=== PATIENT | female | born 1935 | race Caucasian/White ===

== ENCOUNTER → 2017-02-07 | Day surgery (SDC) | payer MEDICARE ==
[~2017-02-07] MED LIST: ASPI-94 PO; ATOR20TA PO; BONI150T PO; BUPIVACAINE/EPINEPHRINE 0.25% PF 10 ML VIAL ONE; CETI10 PO; CIPR500T4 PO; COQ-200C PO; FISH100020 PO; LOSA50TA PO; MECL-62 PO; MUCI600T PO; PEG-SOL4 PO; PRIS50TA PO; RANI150 PO; TYLE500T PO; VENTAER INH
== END | disposition home or self-care (01) ==
LOC: ESDC 13:03
PROVIDERS: ATTEND Orthopaedic Surgery
DX: S83.232A Complex tear of medial meniscus, current injury, left knee, initial encounter (principal); Z01.810 Encounter for preprocedural cardiovascular examination; Z53.9 Procedure and treatment not carried out, unspecified reason
CPT/HCPCS: 93005; G0463; 99211

== ENCOUNTER → 2017-03-07 | Day surgery (SDC) | payer MEDICARE ==
[~2017-03-07] MED LIST changes: +ACETAMINOPHEN/HYDROcodone 325 MG/7.5 MG TAB ONE; +BUPIVACAINE/EPINEPHRINE 0.25% 50 ML VIAL ONE; -BUPIVACAINE/EPINEPHRINE 0.25% PF 10 ML VIAL ONE; +LACTATED RINGER'S 1000 ML INJ 1,000 ML ONE; +MIDAZOLAM HCL 2 MG/2 ML VIAL ONE; +ONDANSETRON HCL 4 MG/2 ML VIAL IV PUSH ONE; +PROPOFOL 100 MG/10 ML INJ IV ONE; +ceFAZolin INJ 1,000 MG VIAL ONE
[2017-03-07 11:57] LABS: PROTHROMBIN TIME - PATIENT 11.2 SEC (9.8-11.6)
--- NOTE | 2017-03-07 14:59 | TN ---
cc: FARZAD FOSTER MD DATE OF SURGERY: [birth year]07/1977 PHYSICIAN/SURGEON: Farzad Foster MD PREOPERATIVE DIAGNOSIS Left knee torn medial meniscus, torn lateral meniscus, loose body chondromalacia / osteoarthritis. POSTOPERATIVE DIAGNOSIS 1. Left knee torn posterior medial meniscus 2. left Knee: Torn anterior lateral meniscus 3. Two loose bodies 4. Osteoarthritis 5. Chondromalacia medial femoral condyle, medial tibial plateau and chondromalacia patella. PROCEDURE Left knee arthroscopy with partial medial meniscectomy and partial lateral meniscectomy, removal of two loose bodies. PROCEDURE IN DETAIL Informed consent was obtained. The patient taken to the operating room and placed in the supine position on the operating room table, she was administered general anesthesia by Dr. Maldonado of the Anesthesia Department that time a tourniquet applied to the left thigh, left leg was prepped with Betadine soap followed by Betadine paint. Draping commenced with sterile down sheet, towel about the tourniquet, split sheet stockinette was applied to the foot calf. This was wrapped with Coban extremity drape was applied. The leg was elevated. A time-out was held and confirmed. The patient had been given gram of Ancef prior to initiation of procedure that time the tear was elevated maximum height. The tourniquet inflated to 300 mmHg. The leg was allowed to flex over the side of the operating table. An 80 gauge spinal needle was placed in the region of the lateral infrapatellar portal. This region infiltrated 4 cc of 0.25% Marcaine with epinephrine. Likewise infiltration was performed into the medial infrapatellar portal and trans patellar tendon portal regions small incision was made with 11-blade region of the trans patellar tendon portal inflow cannula was placed second incision was made. The region of the lateral patellar portal. The arthroscopic cannula was placed. Diagnostic arthroscopy commenced immediate compartment examined Anterior and the medial portion meniscus appeared intact. However, towards posterior medial corner there was some fraying of the meniscus noted posterior portion was opened up. There was a large undersurface tear of the meniscus with degenerative changes extended almost to the posterior horn region utilizing upbiting basket forceps and Striker meniscal shaver. The meniscus was debrided. There were some extensive chondromalacia changes noted. The medial femoral condyle and the medial tibial plateau protect involving the more medial portions send gentle debridement was performed. At that time the scope was maneuvered over the intercondylar notch edge of the lateral compartment and the leg was placed in a figure four position. A large anterolateral loose body was identified. This was grasped with a grasper and removed. The lateral meniscus was probed posterior portion of the lateral meniscus appeared intact popliteus tendon and popliteus hiatus appeared intact. However anteriorly. There was fraying in the anterolateral portions which extended up to the anterior horn region. The chondromalacia changes involving the lateral femoral condyle and tibial plateau were much less severe than his changes on the medial side. Utilizing upbiting basket forceps and this Metooo meniscal shaver. The anterior torn portion of the lateral meniscus was removed. A second loose body was identified during this process and this was likewise removed. Once this was complete the scope was placed in suprapatellar pouch. This appeared normal. There was some mild chondromalacia changes noted on the undersurface of the patella and the trochlear groove. There were no pathologic plica seen. At that time the knee was thoroughly irrigated and suctioned all cannulas were removed. Each portal was closed with single 4-0 nylon stitch, a second stitch was placed in each portal due to the patient's use of Eliquis to attempt to prevent bleeding. The tourniquet was then deflated. Total tourniquet time was 42 minutes. Patient tolerated the procedure well, at the completion of the procedure the sponge count, instrument counts and needle counts were correct, estimated blood loss was less then 10 cc. MD HELEN Jenkins/madeline /2:32 PM /2:42 PM MONTY
== END | disposition home or self-care (01) ==
LOC: ESDC 10:49
PROVIDERS: ATTEND Orthopaedic Surgery
DX: S83.242A Other tear of medial meniscus, current injury, left knee, initial encounter (principal); S83.282A Other tear of lateral meniscus, current injury, left knee, initial encounter; M17.12 Unilateral primary osteoarthritis, left knee; M22.42 Chondromalacia patellae, left knee; Z79.82 Long term (current) use of aspirin
CPT/HCPCS: 01400; 29880; 36415; 85610; J0690; J2250; J2405; J3010; J7120

== ENCOUNTER → 2017-11-29 | Outpatient (CLI) | payer MEDICARE ==
[~2017-11-29] MED LIST changes: -ACETAMINOPHEN/HYDROcodone 325 MG/7.5 MG TAB ONE; +ATOR20TA15 PO; -BUPIVACAINE/EPINEPHRINE 0.25% 50 ML VIAL ONE; +CHOL1TAB42 PO; +COQ-50CA2 PO; -LACTATED RINGER'S 1000 ML INJ 1,000 ML ONE; +METO1TAB9 PO; -MIDAZOLAM HCL 2 MG/2 ML VIAL ONE; -ONDANSETRON HCL 4 MG/2 ML VIAL IV PUSH ONE; -PROPOFOL 100 MG/10 ML INJ IV ONE; +VALS1TAB65 PO; +XARE20TA PO; -ceFAZolin INJ 1,000 MG VIAL ONE
[2017-11-29 10:16] LABS: HEMATOCRIT 41.7 % (35.0-46.0); HEMOGLOBIN 13.9 GM/DL (11.6-15.3); MEAN CELL VOLUME 87.3 FL (80.0-100.0); MEAN CORPUSCULAR HGB CONC 33.3 % (32.0-36.0); PLATELET COUNT 183 TH/MM3 (150-450); RED BLOOD COUNT 4.78 MIL/MM3 (4.00-5.30); RED CELL DISTRIBUTION WIDTH 13.6 % (11.6-17.2); WHITE BLOOD COUNT 8.5 TH/MM3 (4.0-11.0)
[2017-11-29 10:21] LABS: INTERNATIONAL NORMALIZED RATIO 1.3 RATIO; PROTHROMBIN TIME - PATIENT 13.5 SEC (9.8-11.6)
[2017-11-29 10:22] LABS: BILIRUBIN, URINE NEG (NEG); BLOOD, URINE MOD (NEG); GLUCOSE,URINE NEG (NEG); KETONE, URINE NEG (NEG); MUCUS URINE FEW /lpf (OCC); NITRITE,URINE NEG (NEG); PH, URINE 5.5 (5.0-8.5); SQUAMOUS EPITHELIAL CELL URINE 1 /hpf (0-5); URINE COLOR YELLOW (YELLW/STRAW); URINE LEUKOCYTE ESTERASE NEG (NEG)
[2017-11-29 10:48] LABS: BICARBONATE 30.5 MEQ/L (21.0-32.0); CALCIUM 9.3 MG/DL (8.5-10.1); CREATININE 0.83 MG/DL (0.50-1.00)
== END ==
LOC: CPRE 08:32
PROVIDERS: ATTEND Orthopaedic Surgery
DX: Z01.812 Encounter for preprocedural laboratory examination (principal); M79.609 Pain in unspecified limb; M22.42 Chondromalacia patellae, left knee; M17.12 Unilateral primary osteoarthritis, left knee; M21.062 Valgus deformity, not elsewhere classified, left knee; I10 Essential (primary) hypertension
CPT/HCPCS: 36415; 80048; 81001; 85027; 85610; 85730

== ENCOUNTER 2017-12-16 07:30 | Inpatient (IN) | payer MEDICARE ==
[~2017-12-16] VITALS: Ht 157.5 cm; Wt 86.2 kg
[2017-12-16] MEDS: LACTATED RINGER'S 1000 ML INJ 1,000 ML IV SCH ×2 (03:30→14:00)
[~2017-12-16 07:30] MED LIST changes: -ASPI-94 PO; -ATOR20TA PO; -BONI150T PO; -CIPR500T4 PO; -COQ-200C PO; -FISH100020 PO; -LOSA50TA PO; -MECL-62 PO; -MUCI600T PO; -PEG-SOL4 PO; -RANI150 PO; -TYLE500T PO; -VENTAER INH
[2017-12-16] MEDS ORDERED: CHLORHEXIDINE GLUCONATE 4% SOLN 120 ML BTL TOPICAL SCH (08:15)
[2017-12-16] MEDS ORDERED: POVIDONE IODINE 5% (ANTISEPSIS KIT) 4 APPLICATIONS EACH NARE PRN (08:15)
[2017-12-16] MEDS ORDERED: EXPAREL PERI-ARTICULAR INJECTION (TOTAL VOL. 100 ML) P-ARTICULR SCH ×2 (08:15)
[2017-12-16] MEDS ORDERED: TRANEXAMIC ACID INJ 860 MG in SODIUM CHLORIDE 0.9% INJ 100 ML IV SCH (08:15)
[2017-12-16] MEDS ORDERED: INSULIN HUMAN REGULAR 1,000 UNITS/10 ML VIAL SQ PRN (08:15)
[2017-12-16] MEDS ORDERED: METOPROLOL TARTRATE 25 MG TAB PO PRN (08:15)
[2017-12-16] MEDS ORDERED: SODIUM CHLORID 0.9% 500 ML IV PRN (08:15)
[2017-12-16] MEDS ORDERED: CHLORHEXIDINE GLUCONATE 2 % 1 PACK (2 CLOTHS) TOPICAL PRN (08:15)
[2017-12-16] MEDS ORDERED: ceFAZolin 2 GM PREMIX 50 ML IV SCH (08:15)
[2017-12-16] MEDS ORDERED: LACTATED RINGER'S 1000 ML IV PRN (08:15)
[2017-12-16] MEDS ORDERED: GENTAMICIN SULFATE 80 MG/2 ML VIAL ONE (08:28)
[2017-12-16] MEDS ORDERED: ZANT150T2 PO ×2 (08:33)
--- NOTE | 2017-12-16 09:29 | HHI.FF ---
Face to Face Verification Diagnosis: (1) Status post total left knee replacement Physical Therapy Gait training Knee: Total knee, Protocol: Left, Gait training, Full weight bearing Left LE Weight Bearing: WB as tolerated Left LE Range of Motion: Active ROM (active, active-assisted and passive range of motion. Range of motion goal is 0 extension to 125 of flexion.) Nursing Nursing: Dressing changes (to start on postoperative day 7) Dressing Changes: Daily dressing change, Coverderm/Primapore (to start on postop day 7) Additional Instructions Remove Steri-Strips on postoperative day 14. I have seen patient Maria Teresa Torres on 12/16/17. My clinical findings support the need for the requested home health care services because: Ltd mobility - disease progression Limited ability to care for self High risk of falls I certify that my clinical findings support that this patient is homebound because: Post-op weakness Unsteady gait/balance Unsafe to leave home unassisted Jonathan Lin MD (Charles) Dec 16, 2017 09:29
[2017-12-16] MEDS ORDERED: MORPHINE SULFATE 4 MG/ML INJ IV PUSH PRN (09:30)
[2017-12-16] MEDS ORDERED: TRANEXAMIC ACID INJ 0 MG in SODIUM CHLORIDE 0.9% INJ 100 ML IV SCH (09:30)
[2017-12-16] MEDS ORDERED: ACETAMINOPHEN/HYDROcodone 325 MG/7.5 MG TAB PO PRN (09:30)
[2017-12-16] MEDS ORDERED: ONDANSETRON HCL 4 MG/2 ML VIAL IVP PRN (09:30)
[2017-12-16] MEDS ORDERED: MAGNESIUM HYDROXIDE SUSP 30 ML CUP PO PRN (09:30)
[2017-12-16] MEDS ORDERED: Post-op Orders (for Pharmacy) XX ONE (09:30)
[2017-12-16 09:36] LABS: INTERNATIONAL NORMALIZED RATIO 1.1 RATIO
[2017-12-16] MEDS ORDERED: HYDR-3580 PO (09:37)
[2017-12-16] MEDS ORDERED: ROPIVACAINE 0.5% PF INJ 30 ML VIAL ONE (09:42)
[2017-12-16] MEDS ORDERED: FAMOTIDINE 20 MG/2 ML VIAL ONE (09:59)
[2017-12-16] MEDS ORDERED: MIDAZOLAM HCL 2 MG/2 ML VIAL ONE (09:59)
[2017-12-16] MEDS ORDERED: PROPOFOL 500 MG/50 ML INJ 50 ML ONE (09:59)
[2017-12-16] MEDS ORDERED: ACETAMINOPHEN 1000 MG/100 ML 100 ML IV ONE (10:03)
[2017-12-16] MEDS: TRANEXAMIC ACID INJ 860 MG in SODIUM CHLORIDE 0.9% INJ 100 ML IV SCH ×2 (11:15→11:16)
[2017-12-16] MEDS ORDERED: DEXAMETHASONE SOD PHOS 4 MG/ML VIAL IV ONE (12:00)
[2017-12-16] MEDS ORDERED: ONDANSETRON HCL 4 MG/2 ML VIAL IV PUSH ONE (12:00)
[2017-12-16] MEDS ORDERED: PROPOFOL 200 MG/20 ML AMP IV ONE (12:00)
[2017-12-16] MEDS ORDERED: LACTATED RINGER'S 1000 ML INJ 1,000 ML IV ONE (12:00)
[2017-12-16] MEDS ORDERED: PHENYLEPH/NS 1000 MCG/10 ML SYR IV ONE (12:00)
[2017-12-16] MEDS ORDERED: PHENYLEPHRINE HCL 10 MG/ML VIAL IV ONE (12:00)
[2017-12-16] MEDS ORDERED: ePHEDrine/NS 25 MG/5 ML SYRINGE IV ONE (12:00)
--- NOTE | 2017-12-16 12:42 | HHI.PR ---
Immediate Post Op Note Procedure Date: Dec 16, 2017 Pre Op Diagnosis: (1) Primary osteoarthritis of left knee Post Op Diagnosis: (1) Primary osteoarthritis of left knee Surgeon: Heriberto Lin M.D. Help Desk Consultant(s): CHEVY Snowden Procedure: Left total knee arthroplasty using [place] Triathlon prosthesis (uncemented) Findings: There was severe osteoarthritis that was tricompartmental in nature. There were osteophytes, areas of subchondral sclerosis and loss of articular cartilage to expose subchondral bone. Complications: None Specimen(s) removed: Synovium for biopsy Estimated blood loss: 250 mL Anesthesia: Regional Block (adductor canal block), Spinal, Local (bupivacaine liposomal) Drains: Hemovac (2) IVF Tourniquet time (min at mmHg) None Patient to: PACU Patient Condition: Good Implant/Devices: SEE IMPLANT LOG (if applicable) Date/Time of Procedure: SEE SURGICAL CARE RECORD Jonathan Lin MD (Charles) Dec 16, 2017 12:42
--- NOTE | 2017-12-16 12:50 | PD.OP ---
Operative Report Date of Surgery: Dec 16, 2017 Preoperative Diagnosis: (1) Primary osteoarthritis of left knee Postoperative Diagnosis: (1) Primary osteoarthritis of left knee Procedure: Left total knee arthroplasty using [place] Triathlon prosthesis (uncemented) Anesthesia: Spinal with supplemental adductor canal block regional and local with bupivacaine liposomal Surgeon: Heriberto Lin M.D. Basket Operator(s): CHEVY Snowden Operation and Findings: Indications and Findings: This 82-year-old woman has had left knee pain for 3-4 years. She had arthroscopic surgery by another orthopedic surgeon last year. She did not get any improvement. She has ambulation tolerance of 30 feet. She has difficulty from standing from a seated position as well as with stairs. She has not responded to conservative measures including intra-articular corticosteroids, ambulatory aids, physical therapy and activity modification. She cannot use anti-inflammatory agents because she uses Xarelto. Physical findings showed significant crepitation on range of motion with tenderness on motion. She has an antalgic gait. X-rays show loss of articular cartilage to bone on bone laterally with medial narrowing. There is subchondral sclerosis. There are osteophytes. Operative findings were consistent with the radiographic findings with there being loss of articular cartilage in the medial, lateral and patellofemoral joints. There are osteophytes. There was diffuse synovitis with some synovial debris. The prosthesis used was a [place] Triathlon prosthesis. The femur was a size 3, cruciate retaining, uncemented. The tibial baseplate was a size 3 Tritanium with a 9 mm, X3 polyethylene cruciate retaining spacer. The patella was a size 32 mm asymmetric with Tritanium backing.. The patient was brought to the clean-air operating suite. A spinal anesthetic was administered as well as a regional anesthetic by abductor canal block. The position was supine with a small bolster under the hip on the operative side. A pneumatic tourniquet was applied to the upper thigh. The lower extremity was then prepped with alcohol, Hibiclens and ChloraPrep and draped in the usual manner with the knee draped free. An appropriate timeout procedure was carried out. An incision was made from about 3 fingerbreadths above the superior medial pole of patella down the tibial tubercle on the medial side. The incision was deepened through the subcutaneous tissue to the retinacular structures which were exposed medially and laterally. A medial retinacular incision was then made from the superior middle pole of patella down the tibial tubercle and up into the quadriceps tendon splitting it longitudinally and the medial one third. The patella was reflected. The infrapatellar fat pad was debulked. The anterior cruciate ligament was excised. Medial and lateral meniscectomies were initiated. Fenestrations were made in the distal femur and proximal tibia for intramedullary referencing guides. The distal femoral cutting guide and jig were then assembled for a 5, 8 mm cut. When this was fit position and placed cutting block was stabilized with pins. The jig was removed. The distal femoral cut was then completed with the oscillating saw. The sizing guide was then positioned in place along [place]ites[place] line and the epicondylar axis and stabilized with pins. The femoral size was then determined as noted above. The 4-in-1 cutting block was then positioned in place. Anterior and posterior cuts were made followed by posterior and anterior chamfer cuts taking care to prevent injury to ligamentous structures. Osteophytes were then trimmed from the distal femur. A bone plug was then placed into the fenestration of the distal femur. The proximal tibia was then exposed. The medial and lateral meniscectomies were completed. The proximal tibial cutting guide was then positioned in place and stabilized with a pin for rotation. The depth of cut was then verified with a stylus off the lateral side. The cutting block was stabilized with pins. The jig was removed. The depth of cut was then verified and adjusted appropriately with the use of the spacer block. The proximal tibial cut was then made with the oscillating saw taking care to prevent injury to neurovascular and ligamentous structures. Proximal tibial bone was removed. Local anesthetic was administered with Exparel in the posterior capsule. The tibial baseplate trial was then positioned in place. After verifying the appropriate size, the base plate trial was positioned in place along with its spacer. The femoral component was then impacted into place. The alignment was checked. The tibial baseplate was then pinned in place on the tibia. Attention was directed to the patella. The patella drill guide was positioned in place for the appropriate sized patella. Patellar drilling was then carried out. The trial patella was positioned in place. The knee was taken through a range of motion which was easily 0 extension to 120 by gravity and 130 with pressure. The patella trial was removed. The femoral drill holes were made. The femoral trials were removed. The tibial spacer was removed. A bone plug was placed into the proximal tibia. The tibial punch was impacted through the proximal tibial punch guide. This was all removed followed by placement of the tibial drill guide. The tibial drill holes were then made. The guide was removed. The cut ends of bone were then cleaned with pulse lavage. The tibial baseplate was then impacted into place and seated appropriately. The spacer was inserted. The the femoral component was then impacted into place and seated appropriately. The patella component was then seated with the patellar device and tightened appropriately. The knee was taken through a range of motion which was comparable to the previous range of motion with excellent stability in flexion and extension and appropriate patellofemoral tracking. The remainder of the Exparel was then injected throughout the knee as a local anesthetic. Drains were brought out the superior lateral aspect of the suprapatellar pouch. Wound closure then commenced using 0 Vicryl interrupted [id number] sutures for the capsular and fascial structures, 2-0 Vicryl interrupted simple sutures with buried knots for the subcutaneous tissues and 4- 0 Monocryl, tenuous subcuticular closure for the skin. The wound was then dressed with Steri-Strips followed by Optifoam silver impregnated dressing. Sterile soft roll with a cooling pad and Silverio bandage from the base of the toes to mid thigh were then applied. Patient was then transferred from the operating room to the recovery room in satisfactory condition having tolerated procedure well. Counts are correct. Specimens: Hypertrophic synovium with debris. Estimated blood loss: 250 mL Jonathan Lin MD (Charles) Dec 16, 2017 12:50
[2017-12-16] MEDS ORDERED: *morphine SULFATE 4 MG/ML PERIprocedure ONLY ONE ×3 (13:02→14:46)
[2017-12-16] MEDS: KETOROLAC TROMETHAMINE 30 MG/ML (IVP) VIAL IVP SCH ×2 (13:30→20:27)
[2017-12-16] MEDS ORDERED: LORazepam 2 MG/ML VIAL ONE (13:41)
[2017-12-16] MEDS ORDERED: DO NOT ADM ANY ANTICOAGULANT DRUGS PRN (14:00)
--- NOTE | 2017-12-16 14:03 | RADRPT ---
EXAM DATE/TIME: 12/16/2017 13:27 [facility] COMPARISON: No previous studies available for comparison. INDICATIONS : Post op total left knee. MEDICAL HISTORY : None. SURGICAL HISTORY : None. ENCOUNTER: Initial ACUITY: 1 day PAIN SCORE: 0/10 LOCATION: Left Knee FINDINGS: There is placement of total knee prosthesis which appears to be well-seated with overlying surgical d rains CONCLUSION: Total knee prosthesis well seated Devaughn Pozo MD on December 16, 2017 at 14:00 Board Certified Radiologist. This report was verified electronically.
[2017-12-16] MEDS ORDERED: LORazepam 2 MG/ML VIAL IV ONE (14:15)
--- NOTE | 2017-12-16 14:56 | PD.CONS ---
HPI Service [facility] Hospitalists Consult Requested By Orthopedic service Dr. Lin Reason for Consult Medical management Primary Care Physician Oscar Lanier MD Diagnoses: History of Present Illness Written by Cristine Quiñones, acting as scribe for Dr. Solo on 12/16/17 at 14: 39. This is an 82yo female with a PMHX significant for atrial fibrillation, hypertension, dyslipidemia, GERD and chronic back pain who has been under the care of orthopedist Dr. Lin for progressive left knee pain secondary to degenerative joint disease, has failed to respond to efforts of conservative management and was admitted for elective left total knee replacement surgery. Hospitalist services have been consulted for medical management. Patient seen and examined. Patient is actually complaining of right leg pain on the nonoperative leg extending from the knee down the lateral aspect of the lower leg. She denies any other complaints at this time. Review of Systems Except as stated in HPI: all other systems reviewed are Neg Past Family Social History Allergies: Coded Allergies: No Known Allergies (Verified Allergy, Unknown, 12/16/17) Past Medical History History of degenerative joint disease left knee Atrial fibrillation Hypertension Dyslipidemia Chronic back pain Depression GERD Past Surgical History 03/07/17 status post left knee arthroscopy, partial medial and lateral meniscectomies and removal of loose bodies 2 Reported Medications Zyrtec 10 mg daily Xarelto 20 mg daily Atorvastatin 20 mg by mouth daily at bedtime Metoprolol 50 mg by mouth daily Valsartan 160 mg by mouth twice a day Pristiq 24hr 50 mg 1 by mouth daily Zantac 150 mg by mouth twice a day Cholecalciferol 2000units 1 cap po BID Active Ordered Medications Current Medications Medications (Trade) Dose Ordered Sig/Dino Route Start Time Stop Time Status Last Admin Lactated Ringer's 1,000 ml @ 30 mls/hr Q24H PRN IV 12/16/17 08:15 12/19/17 08:14 Sodium Chloride 500 ml @ 30 mls/hr [id number] PRN IV 12/16/17 08:15 12/19/17 08:14 (Lopressor) 25 mg GLOVE FORMER PRN PO 12/16/17 08:15 12/19/17 08:14 (Betadine 5% Antisepsis Kit) 1 applic GLOVE FORMER PRN EACH NARE 12/16/17 08:15 12/19/17 08:14 (Chlorhexidine 2% Cloth) 3 pack GLOVE FORMER PRN TOPICAL 12/16/17 08:15 12/19/17 08:14 (NovoLIN R INJ) See Protocol Table ... GLOVE FORMER PRN SQ 12/16/17 08:15 12/19/17 08:14 (Hibiclens 4% Top Soln) 1 applic ONCE TOPICAL 12/16/17 08:15 12/19/17 08:14 Cefazolin Sodium/ Dextrose 50 ml @ 100 mls/hr GLOVE FORMER IV 12/16/17 08:15 12/19/17 08:14 12/16/17 11:14 Tranexamic Acid 860 mg/Sodium Chloride 108.6 ml @ 200 mls/hr ONCE IV 12/16/17 08:15 12/17/17 08:14 12/16/17 11:16 Tranexamic Acid 860 mg/Sodium Chloride 108.6 ml @ 200 mls/hr ONCE IV 12/16/17 08:15 12/17/17 08:14 Bupivacaine Liposome 20 ml/ Sodium Chloride 100 ml @ 200 mls/hr ONCE P-ARTICULR 12/16/17 08:15 12/17/17 08:14 12/16/17 11:19 Lactated Ringer's 1,000 ml @ 80 mls/hr [id number] IV 12/16/17 10:30 Cefazolin Sodium 1000 mg/Sodium Chloride 100 ml @ 200 mls/hr Q6H IV 12/16/17 17:00 12/17/17 05:29 (Morphine Inj) 4 mg Q3H PRN IV PUSH 12/16/17 09:30 ([place] 7.5-325 Mg) 1 tab Q4H PRN PO 12/16/17 09:30 ([place] 7.5-325 Mg) 2 tab Q4H PRN PO 12/16/17 09:30 (Toradol Inj) 15 mg Q6H IVP 12/16/17 13:30 12/18/17 07:31 (Zofran Inj) 4 mg Q6H PRN IVP 12/16/17 09:30 (Colace) 100 mg BID PO 12/17/17 21:00 (Ambien) 5 mg HS PRN PO 12/16/17 21:00 (Milk Of Magnesia Liq) 30 ml DAILY PRN PO 12/16/17 09:30 (Lipitor) 20 mg HS PO 12/16/17 21:00 (ZyrTEC) 10 mg DAILY PO 12/17/17 09:00 (Toprol Xl) 50 mg DAILY PO 12/17/17 09:00 (Xarelto) 20 mg Q24H PO 12/17/17 12:00 (Diovan) 160 mg BID PO 12/16/17 21:00 (Vitamin D3) 2,000 units BID PO 12/16/17 21:00 Patient Own Medication PT OWN MED: PRISTIQ... DAILY PO 12/17/17 09:00 Future Hold (Pepcid) 20 mg BID PO 12/16/17 21:00 Miscellaneous Information ALL NURSING DEPARTME... UNSCH PRN .XX 12/16/17 14:00 12/17/17 13:59 Family History Reviewed with patient, denies any contributing FMHX Social History Patient denies any tobacco use, EtOH consumption or illicit drug use. Physical Exam Vital Signs Vital Signs Date Time Temp Pulse Resp B/P (MAP) Pulse Ox O2 Delivery O2 Flow Rate FiO2 12/16/17 08:30 98.6 66 18 148/70 (96) 98 Physical Exam GENERAL: This is a well-nourished, well-developed elderly female patient, in no apparent distress. Lethargic postoperatively, oriented. SKIN: No rashes, ecchymoses or lesions. Cool and dry. HEAD: Atraumatic. Normocephalic. No temporal or scalp tenderness. EYES: Pupils equal round and reactive. Extraocular motions intact. No scleral icterus. No injection or drainage. ENT: Nose without bleeding or purulent drainage. Throat without erythema, tonsillar hypertrophy or exudate. Uvula midline. Airway patent. NECK: Trachea midline. No lymphadenopathy. Supple, nontender, no meningeal signs. CARDIOVASCULAR: Regular rate and rhythm without murmurs, gallops, or rubs. RESPIRATORY: Clear to auscultation. Breath sounds equal bilaterally. No wheezes , rales, or rhonchi. GASTROINTESTINAL: Abdomen soft, non-tender, nondistended. No hepato-splenomegaly , or palpable masses. No guarding. MUSCULOSKELETAL: Left lower extremity postoperative, dressing C/D/I. RLE with subjective pain over lateral aspect lower leg extending down from the knee. Right calf supple. NEUROLOGICAL: Awake and oriented. Able to move all extremities spontaneously except for left lower extremity. No focal neurologic finding appreciated. Normal speech. Laboratory Laboratory Tests Test 12/16/17 09:10 Prothrombin Time 11.0 Prothromb Time International Ratio 1.1 Imaging Last Impressions Knee X-Ray 12/16/17 0961 Signed Impressions: Service Date/Time: Saturday, December 16, 2017 13:27 - CONCLUSION: Total knee prosthesis well seated Devaughn Pozo MD Assessment and Plan Assessment and Plan 82yo female with a PMHX significant for atrial fibrillation, hypertension, dyslipidemia, GERD and chronic back pain who has been under the care of orthopedist Dr. Lin for progressive left knee pain secondary to degenerative joint disease, has failed to respond to efforts of conservative management and was admitted for elective left total knee replacement surgery. Hospitalist services have been consulted for medical management. Degenerative joint disease of the left knee failed attempts at outpatient conservative management admitted for elective left total knee replacement surgery - Management per orthopedic service, Dr. Lin - Pain management consisting of [place], IV Toradol and IV Morphine prn with bowel regimen - Monitor CBC postoperatively C/o RLE, nonoperative leg - Patient with history of chronic back pain, possible radiculopathy secondary to operative positioning - Obtain ultrasound of right lower extremity rule out DVT Hypertension - BP low postoperatively - currently 119/59 - suspect narcotic effect - Patient on Toprol-XL and Diovan at home, resume with parameters - Continue to monitor BP and adjust treatment accordingly Atrial fibrillation - rate controlled - Resume Xarelto 20 mg by mouth daily per Dr. Lin - Continue patient on Toprol XL 50 mg daily' - Continue to monitor heart rate Dyslipidemia - Continue patient on home dose of statin therapy Depression - Continue patient on home medication Pristiq GERD - Pepcid 20mg BID DVT prophylaxis - patient is on Xarelto Thank you very kindly for this consultation. We'll continue to follow patient with you. Discussed Condition With patient, nursing staff This note was transcribed by jarek Quiñones. I, Dr. Jaspreet Solo personally performed the history, physical exam, and medical decision making; and confirmed the accuracy of the information in the transcribed note. Authenticated by Dr. Jaspreet Solo on 12/16/17 at 22:50. Cristine Quiñones Dec 16, 2017 14:56 Jaspreet Solo MD Dec 16, 2017 22:50
[2017-12-16 20:00] VITALS: BP 118/51; PULSE 52; RESP 17; TEMP 96.7; O2SAT 99
[2017-12-16] MEDS ORDERED: NON-FORMULARY DRUG (Coenzyme Q10 (Ubidecarenone) (Coq-10) 100 MG) PO SCH (21:00)
[2017-12-16] MEDS ORDERED: ASPIRIN EC 81 MG TABEC PO SCH (21:00)
[2017-12-16] MEDS ORDERED: ZOLPIDEM TARTRATE 5 MG TAB PO PRN (21:00)
--- NOTE | 2017-12-16 21:09 | RADRPT ---
EXAM DATE/TIME: 12/16/2017 20:30 [facility] COMPARISON: No previous studies available for comparison. INDICATIONS : Right leg pain. MEDICAL HISTORY : Hypercholesterolemia. Hypertension. Gastroesophageal reflux disease. Glasses. Hard of hearing. Atr ial fibrillation. Arthritis. Depression. Anxiety. SURGICAL HISTORY : Arthroscopy. Bilateral breast biopsy. ENCOUNTER: Initial ACUITY: 1 day PAIN SCORE: 3/10 LOCATION: Right leg. TECHNIQUE: Venous ultrasound of the leg was performed from the inguinal ligament to the proximal calf. Real-marcus e, color Doppler and spectral tracing, compression and augmentation techniques were used. FINDINGS: There is normal compressibility of the deep venous system from the inguinal region to the proximal ca lf. No echogenic clot is seen in the lumen of the common femoral, femoral, popliteal, and posterior tibial veins. There is a normal response of the venous system to proximal and distal augmentation an d respiration. CONCLUSION: Normal examination. Zachary Wilder Jr., MD on December 16, 2017 at 21:06 Board Certified Radiologist. This report was verified electronically.
[2017-12-16] MEDS: CHOLECALCIFEROL (VIT D3) 1000 UNIT TAB PO SCH (21:46)
[2017-12-16] MEDS: ATORVASTATIN 20 MG TAB PO SCH (21:46)
[2017-12-16] MEDS: FAMOTIDINE 20 MG TAB PO SCH (21:46)
[2017-12-16] MEDS: VALSARTAN 160 MG TAB PO SCH (21:46)
[2017-12-17] VITALS (7 sets, daily range): BP systolic 112–128; BP diastolic 56–65; PULSE 55–90; RESP 17–18; TEMP 95.1–97.2; O2SAT 94–100
[2017-12-17] MEDS: KETOROLAC TROMETHAMINE 30 MG/ML (IVP) VIAL IVP SCH ×4 (00:16→20:06)
[2017-12-17] MEDS: ACETAMINOPHEN/HYDROcodone 325 MG/7.5 MG TAB PO PRN ×3 (03:33→17:56)
--- NOTE | 2017-12-17 06:16 | PD.ORT.PN ---
Subjective Post Op Day #: 1 Subjective Remarks She is doing relatively well related to her left knee. She does have some pain in her right calf. This seems to be somewhat radicular in character. The hospitalist consult did not allow the patient to walk with therapy pending a venous Doppler study for presumptive DVT yesterday. Objective Vitals Vital Signs Date Time Temp Pulse Resp B/P (MAP) Pulse Ox O2 Delivery O2 Flow Rate FiO2 12/17/17 04:20 96.6 55 17 113/65 (81) 98 12/17/17 00:35 96.9 72 18 121/63 (82) 94 12/16/17 20:00 96.7 52 17 118/51 (73) 99 12/16/17 18:00 96.4 62 15 103/64 (77) 100 Nasal Cannula 3 12/16/17 17:13 15 12/16/17 17:00 64 15 95/62 (73) 100 Nasal Cannula 3 12/16/17 16:00 62 15 112/57 (75) 100 Nasal Cannula 3 12/16/17 15:30 62 15 123/60 (81) 100 Nasal Cannula 3 12/16/17 15:00 70 15 116/58 (77) 100 Nasal Cannula 3 12/16/17 14:30 69 15 119/59 (79) 100 Nasal Cannula 3 12/16/17 14:00 57 17 116/54 (74) 100 Nasal Cannula 3 12/16/17 13:45 59 16 115/56 (75) 100 Nasal Cannula 3 12/16/17 13:30 64 16 105/56 (72) 100 Nasal Cannula 3 12/16/17 13:15 68 15 99/47 (64) 100 Nasal Cannula 3 12/16/17 13:08 74 15 98/43 (61) 99 Nasal Cannula 3 12/16/17 13:04 66 16 76/55 (62) 100 Nasal Cannula 3 12/16/17 13:00 97.5 72 15 86/51 (63) 98 Nasal Cannula 3 12/16/17 08:30 98.6 66 18 148/70 (96) 98 I/O 12/16/17 12/16/17 12/16/17 12/17/17 12/17/17 12/17/17 07:00 15:00 23:00 07:00 15:00 23:00 Intake Total 1300 ml 765 ml Output Total 250 ml 1070 ml 60 ml Balance 1050 ml -305 ml -60 ml Intake Oral 240 ml IV Total 1300 ml 525 ml Output Urine Total 850 ml Drainage Total 220 ml 60 ml Estimated Blood Loss 250 ml Bladder Scan Volume Amount 23 ml # Bowel Movements 0 Other Results Laboratory Tests Test 12/16/17 09:10 Prothromb Time International Ratio 1.1 RATIO Prothrombin Time 11.0 SEC (9.8-11.6) Imaging Last 72 hours Impressions Knee X-Ray 12/16/17923 Signed Impressions: Service Date/Time: Saturday, December 16, 2017 13:27 - CONCLUSION: Total knee prosthesis well seated Devaughn Pozo MD Lower Extremity Ultrasound 12/16/17 0000 Signed Impressions: Service Date/Time: Saturday, December 16, 2017 20:30 - CONCLUSION: Normal examination. Zachary Wilder Jr., MD Last 24 hours Impressions Knee X-Ray 12/16/17923 Signed Impressions: Service Date/Time: Saturday, December 16, 2017 13:27 - CONCLUSION: Total knee prosthesis well seated Devaughn Pozo MD Objective Remarks She is resting comfortably, supine in bed, in the [facility]. The dressing is dry and intact. The neurovascular status is intact. The right leg has some tenderness. When she flexes the knee, the tenderness abates. Assessment & Plan Ortho Post Op Day #: 1 Problem List: (1) Primary osteoarthritis of left knee ICD Codes: M17.12 - Unilateral primary osteoarthritis, left knee Status: Resolved (2) Status post total left knee replacement ICD Codes: Z96.652 - Presence of left artificial knee joint Plan: Continue postop care and PT. Assessment and Plan Condition: Good. Orthopedically stable. DVT prophylaxis: TEDs, resumption of Xarelto, sequentials. Discharge plans: Home with home health care versus [facility] facility for rehabilitation([facility]). An appointment was scheduled through the office. Prescriptions: [place] 7.5/325 Jonathan Lin MD ([place]) Dec 17, 2017 06:16
[2017-12-17 07:37] LABS: HEMATOCRIT 35.7 % (35.0-46.0); HEMOGLOBIN 11.5 GM/DL (11.6-15.3)
[2017-12-17] MEDS ORDERED: PRISTIQ 50 MG PO SCH (09:00)
[2017-12-17] MEDS ORDERED: MAGNESIUM HYDROXIDE SUSP 30 ML CUP PO ONE (09:45)
[2017-12-17] MEDS ORDERED: DOCUSATE SODIUM 50 MG/SENNA 8.6 MG TAB PO ONE (09:45)
[2017-12-17] MEDS: FAMOTIDINE 20 MG TAB PO SCH ×2 (10:14→20:05)
[2017-12-17] MEDS: CHOLECALCIFEROL (VIT D3) 1000 UNIT TAB PO SCH ×2 (10:14→20:04)
[2017-12-17] MEDS: CETIRIZINE HCL 10 MG TAB PO SCH (10:14)
[2017-12-17] MEDS: METOPROLOL SUCCINATE 50 MG EXTENDED RELEASE TAB PO SCH (10:14)
[2017-12-17] MEDS: VALSARTAN 160 MG TAB PO SCH ×2 (10:16→20:06)
[2017-12-17] MEDS: RIVAROXABAN 20 MG TAB PO SCH (11:16)
--- NOTE | 2017-12-17 12:27 | HHI.PR ---
Subjective Remarks pt says she is feeling alright. no n/v/cp/sob. no bm Objective Vital Signs Date Time Temp Pulse Resp B/P (MAP) Pulse Ox O2 Delivery O2 Flow Rate FiO2 12/17/17 11:40 95.1 63 18 117/62 (80) 100 12/17/17 08:13 96 Nasal Cannula 3.00 12/17/17 07:40 95.9 62 18 120/60 (80) 98 12/17/17 04:20 96.6 55 17 113/65 (81) 98 12/17/17 00:35 96.9 72 18 121/63 (82) 94 12/16/17 20:00 96.7 52 17 118/51 (73) 99 12/16/17 18:00 96.4 62 15 103/64 (77) 100 Nasal Cannula 3 12/16/17 17:13 15 12/16/17 17:00 64 15 95/62 (73) 100 Nasal Cannula 3 12/16/17 16:00 62 15 112/57 (75) 100 Nasal Cannula 3 12/16/17 15:30 62 15 123/60 (81) 100 Nasal Cannula 3 12/16/17 15:00 70 15 116/58 (77) 100 Nasal Cannula 3 12/16/17 14:30 69 15 119/59 (79) 100 Nasal Cannula 3 12/16/17 14:00 57 17 116/54 (74) 100 Nasal Cannula 3 12/16/17 13:45 59 16 115/56 (75) 100 Nasal Cannula 3 12/16/17 13:30 64 16 105/56 (72) 100 Nasal Cannula 3 12/16/17 13:15 68 15 99/47 (64) 100 Nasal Cannula 3 12/16/17 13:08 74 15 98/43 (61) 99 Nasal Cannula 3 12/16/17 13:04 66 16 76/55 (62) 100 Nasal Cannula 3 12/16/17 13:00 97.5 72 15 86/51 (63) 98 Nasal Cannula 3 I/O 12/16/17 12/16/17 12/16/17 12/17/17 12/17/17 12/17/17 07:00 15:00 23:00 07:00 15:00 23:00 Intake Total 1300 ml 765 ml 360 ml Output Total 250 ml 1070 ml 160 ml Balance 1050 ml -305 ml 200 ml Intake Oral 240 ml 360 ml IV Total 1300 ml 525 ml Output Urine Total 850 ml 100 ml Drainage Total 220 ml 60 ml Estimated Blood Loss 250 ml Bladder Scan Volume Amount 23 ml # Bowel Movements 0 0 Result Diagram: 12/17/17 0610 Objective Remarks GENERAL: Patient sitting up in chair at bedside. Appears comfortable. alert, oriented 3. SKIN: Warm and dry. HEAD: Normocephalic. EYES: No scleral icterus. No injection or drainage. NECK: Supple, trachea midline. No JVD. CARDIOVASCULAR: Regular rate and rhythm without murmurs, gallops, or rubs. RESPIRATORY: Breath sounds equal bilaterally. No accessory muscle use. GASTROINTESTINAL: Abdomen soft, non-tender, nondistended. MUSCULOSKELETAL: No cyanosis, or edema. Operative knee not examined. Trace peripheral edema. BACK: Nontender without obvious deformity. No CVA tenderness. A/P Assessment and Plan 82yo female with a PMHX significant for atrial fibrillation, hypertension, dyslipidemia, GERD and chronic back pain who has been under the care of orthopedist Dr. Lin for progressive left knee pain secondary to degenerative joint disease, has failed to respond to efforts of conservative management and was admitted for elective left total knee replacement surgery. Hospitalist services have been consulted for medical management. //Degenerative joint disease of the left knee failed attempts at outpatient conservative management admitted for elective left total knee replacement surgery - Management per orthopedic service, Dr. Lin - Pain management consisting of [place], IV Toradol and IV Morphine prn with bowel regimen - Monitor CBC postoperatively = Postoperative management and pain management as per surgical service. Hemoglobin acceptable. Continue to monitor. Wait return of bowel function. Awaiting PT recommendations. //C/o RLE, nonoperative leg - Patient with history of chronic back pain, possible radiculopathy secondary to operative positioning - Obtain ultrasound of right lower extremity rule out DVT = Ultrasound right lower extremity negative for DVT. A coagulation as per surgical service. //Hypertension - BP low postoperatively - currently 119/59 - suspect narcotic effect - Patient on Toprol-XL and Diovan at home, resume with parameters - Continue to monitor BP and adjust treatment accordingly = Blood pressure acceptable. Continue to monitor. Continue home medications. //Atrial fibrillation - rate controlled - Resume Xarelto 20 mg by mouth daily per Dr. Lin - Continue patient on Toprol XL 50 mg daily' - Continue to monitor heart rate = 10 year Xarelto home medication //Dyslipidemia - Continue patient on home dose of statin therapy //Depression - Continue patient on home medication Pristiq /GERD - Pepcid 20mg BID //DVT prophylaxis - patient is on Xarelto Discharge Planning Awaiting PT recommendations. Jaspreet Solo MD Dec 17, 2017 12:27
[2017-12-17] MEDS: ATORVASTATIN 20 MG TAB PO SCH (20:05)
[2017-12-17] MEDS: DOCUSATE SODIUM 100 MG CAP PO SCH (20:05)
[2017-12-18] VITALS: BP_SYST 143; BP_SYST 150; BP_DIAS 67; PULSE 67; PULSE 70; RESP 16; RESP 18; TEMP 97; TEMP 99; O2SAT 96; O2SAT 97
[2017-12-18] MEDS: KETOROLAC TROMETHAMINE 30 MG/ML (IVP) VIAL IVP SCH ×2 (02:48→09:29)
[2017-12-18 04:00] VITALS: BP 137/60; PULSE 62; RESP 20; TEMP 97.4; O2SAT 99
--- NOTE | 2017-12-18 07:33 | PD.ORT.PN ---
Subjective Post Op Day #: 2 Subjective Remarks She is doing relatively well related to her left knee. She went to classes without any difficulty. She tolerated physical therapy well. Range of Motion 0 to 80. Distance Walked 32 feet with PT. Objective Vitals Vital Signs Date Time Temp Pulse Resp B/P (MAP) Pulse Ox O2 Delivery O2 Flow Rate FiO2 12/18/17 04:00 97.4 62 20 137/60 (85) 99 12/18/17 00:00 97.0 70 18 143/67 (92) 96 12/17/17 20:00 97.2 78 18 128/60 (82) 99 12/17/17 15:47 95.9 90 18 112/56 (74) 97 12/17/17 11:40 95.1 63 18 117/62 (80) 100 12/17/17 08:13 96 Nasal Cannula 3.00 12/17/17 07:40 95.9 62 18 120/60 (80) 98 I/O 12/17/17 12/17/17 12/17/17 12/18/17 12/18/17 12/18/17 07:00 15:00 23:00 07:00 15:00 23:00 Intake Total 560 ml 950 ml 320 ml 220 ml Output Total 160 ml 360 ml 475 ml Balance 400 ml 950 ml -40 ml -255 ml Intake Oral 360 ml 950 ml 320 ml 220 ml IV Total 200 ml Output Urine Total 100 ml 300 ml 400 ml Drainage Total 60 ml 60 ml 75 ml Bladder Scan Volume Amount 23 ml # Voids 3 # Bowel Movements 0 0 2 Result Diagram: 12/17/17 0610 Imaging Last 72 hours Impressions Knee X-Ray 12/16/17923 Signed Impressions: Service Date/Time: Saturday, December 16, 2017 13:27 - CONCLUSION: Total knee prosthesis well seated Devaughn Pozo MD Lower Extremity Ultrasound 12/16/17 0000 Signed Impressions: Service Date/Time: Saturday, December 16, 2017 20:30 - CONCLUSION: Normal examination. Zachary Wilder Jr., MD Last 24 hours Impressions Knee X-Ray 12/16/17923 Signed Impressions: Service Date/Time: Saturday, December 16, 2017 13:27 - CONCLUSION: Total knee prosthesis well seated Devaughn Pozo MD Objective Remarks She is resting comfortably, supine in bed, in the [facility]. The dressing is dry and intact. The neurovascular status is intact. Assessment & Plan Ortho Post Op Day #: 2 Problem List: (1) Primary osteoarthritis of left knee ICD Codes: M17.12 - Unilateral primary osteoarthritis, left knee Status: Resolved (2) Status post total left knee replacement ICD Codes: Z96.652 - Presence of left artificial knee joint Plan: Continue postop care and PT. Assessment and Plan Condition: Good. Orthopedically stable. DVT prophylaxis: TEDs, resumption of Xarelto, sequentials. Discharge plans: group home facility for rehabilitation([facility]). An appointment was scheduled through the office. Prescriptions: [place] 7.5/325 Jonathan Lin MD (Charles) Dec 18, 2017 07:33
[2017-12-18 08:00] VITALS: BP 133/80; PULSE 74; RESP 16; TEMP 98.6; O2SAT 100
[2017-12-18] MEDS: FAMOTIDINE 20 MG TAB PO SCH ×2 (09:27→23:17)
[2017-12-18] MEDS: DOCUSATE SODIUM 100 MG CAP PO SCH ×2 (09:27→23:17)
[2017-12-18] MEDS: CETIRIZINE HCL 10 MG TAB PO SCH (09:27)
[2017-12-18] MEDS: VALSARTAN 160 MG TAB PO SCH ×2 (09:28→23:16)
[2017-12-18] MEDS: CHOLECALCIFEROL (VIT D3) 1000 UNIT TAB PO SCH ×2 (09:28→23:17)
[2017-12-18] MEDS: METOPROLOL SUCCINATE 50 MG EXTENDED RELEASE TAB PO SCH (09:28)
[2017-12-18 09:37] LABS: HEMOGLOBIN 11.9 GM/DL (11.6-15.3)
[2017-12-18] MEDS: LACTATED RINGER'S 1000 ML INJ 1,000 ML IV SCH ×2 (12:30)
[2017-12-18] MEDS: RIVAROXABAN 20 MG TAB PO SCH (12:45)
[2017-12-18 16:00] VITALS: BP 126/60; PULSE 58; RESP 16; TEMP 96.9; O2SAT 97
[2017-12-18 20:00] VITALS: BP 125/59; PULSE 64; RESP 18; TEMP 97.1; O2SAT 95
[2017-12-18] MEDS: ATORVASTATIN 20 MG TAB PO SCH (23:16)
[2017-12-19] VITALS: BP 150/67; PULSE 67; RESP 16; TEMP 99; O2SAT 97
[2017-12-19] MEDS: ACETAMINOPHEN/HYDROcodone 325 MG/7.5 MG TAB PO PRN ×2 (00:42→08:50)
[2017-12-19] MEDS: LACTATED RINGER'S 1000 ML INJ 1,000 ML IV SCH (01:00)
[2017-12-19 03:55] VITALS: BP 116/61; PULSE 73; RESP 17; TEMP 98.9; O2SAT 98
--- NOTE | 2017-12-19 07:44 | PD.ORT.PN ---
Subjective Post Op Day #: 3 Subjective Remarks She is doing well. She went to classes without difficulty. She has continued to tolerate physical therapy well. Range of Motion 0 to 90. Distance Walked 100 feet twice with physical therapy. Objective Vitals Vital Signs Date Time Temp Pulse Resp B/P (MAP) Pulse Ox O2 Delivery O2 Flow Rate FiO2 12/19/17 03:55 98.9 73 17 116/61 (79) 98 12/19/17 00:00 99.0 67 16 150/67 (94) 97 12/18/17 20:00 97.1 64 18 125/59 (81) 95 12/18/17 16:00 96.9 58 16 126/60 (82) 97 12/18/17 08:00 98.6 74 16 133/80 (97) 100 I/O 12/18/17 12/18/17 12/18/17 12/19/17 12/19/17 12/19/17 07:00 15:00 23:00 07:00 15:00 23:00 Intake Total 220 ml 480 ml 480 ml Output Total 475 ml Balance -255 ml 480 ml 480 ml Intake Oral 220 ml 480 ml 480 ml Output Urine Total 400 ml Drainage Total 75 ml # Voids 3 1 # Bowel Movements 2 0 0 Result Diagram: 12/18/17 0813 Imaging Last 72 hours Impressions Knee X-Ray 12/16/17923 Signed Impressions: Service Date/Time: Saturday, December 16, 2017 13:27 - CONCLUSION: Total knee prosthesis well seated Devaughn Pozo MD Lower Extremity Ultrasound 12/16/17 0000 Signed Impressions: Service Date/Time: Saturday, December 16, 2017 20:30 - CONCLUSION: Normal examination. Zachary Wilder Jr., MD Last 24 hours Impressions Knee X-Ray 12/16/17923 Signed Impressions: Service Date/Time: Saturday, December 16, 2017 13:27 - CONCLUSION: Total knee prosthesis well seated Devaughn Pozo MD Objective Remarks She is resting comfortably, supine in bed, in the C[facility]. The dressing is dry and intact. The neurovascular status is intact. Assessment & Plan Ortho Post Op Day #: 3 Problem List: (1) Primary osteoarthritis of left knee ICD Codes: M17.12 - Unilateral primary osteoarthritis, left knee Status: Resolved (2) Status post total left knee replacement ICD Codes: Z96.652 - Presence of left artificial knee joint Plan: Continue postop care and PT. Assessment and Plan Condition: Good. Orthopedically stable. DVT prophylaxis: TEDs, resumption of Xarelto, sequentials. Discharge plans: alf facility for rehabilitation ([facility] An appointment was scheduled through the office. Prescriptions: [place] 7.5/325 Jonathan Lin MD (Charles) Dec 19, 2017 07:44
[2017-12-19 08:00] VITALS: BP 142/68; PULSE 75; RESP 18; TEMP 96.8; O2SAT 97
--- NOTE | 2017-12-19 08:10 | HHI.DS ---
Discharge Summary Admission Date Dec 16, 2017 at 07:30 Discharge Date: Dec 19, 2017 Admitting Diagnosis Primary osteoarthritis, left knee. Diagnosis: (1) Primary osteoarthritis of left knee Diagnosis: Principal ICD Codes: M17.12 - Unilateral primary osteoarthritis, left knee Status: Resolved (2) Status post total left knee replacement Diagnosis: Principal ICD Codes: Z96.652 - Presence of left artificial knee joint Procedures Left total knee arthroplasty using Fran Triathlon prosthesis (uncemented) on 12/16/2017. Brief History This is a 82 year old female patient has had left knee pain for 3-4 years that has been nonresponsive to conservative measures. She had a previous arthroscopic procedure carried out by another orthopedic surgeon. She has also been treated with analgesics, activity modification, exercises as well as intra- articular corticosteroids. She was unable to take anti-inflammatory agents because of the use of anticoagulants. Her ambulation tolerance is 20-30 feet. She had difficulty with activities of daily living. CBC/BMP: 12/18/17 0813 Significant Findings Laboratory Tests Test 12/16/17 09:10 12/17/17 06:10 12/18/17 08:13 Hemoglobin 11.5 GM/DL (11.6-15.3) Physical findings at the time of admission showed some degenerative varum with tenderness in the medial aspect and crepitation on range of motion. There is limited range of motion. She had an antalgic gait. X-rays hard to admission showed severe osteoarthritis loss of joint space in the medial and lateral compartments to bone on bone with eburnation and osteophytes. Imaging Last 72 hours Impressions Knee X-Ray 12/16/17 0924 Signed Impressions: Service Date/Time: Saturday, December 16, 2017 13:27 - CONCLUSION: Total knee prosthesis well seated Devaughn Pozo MD PE at Discharge She is resting comfortably, supine in bed, in the [facility]. The dressing is dry and intact. The neurovascular status is intact. Transfer Summary The patient is being transferred to snf facility for physical therapy for multiple modalities treatment. She will need physical therapy twice daily. She needs active, active-assisted and passive range of motion exercises. Range of motion goal is 0 extension to at least 120 of flexion, which was easily achieved in the operating room. With difficulty in the operating room she reached 130. Daily dressing changes should be started on postoperative day 7. Steri-Strip removal should be on postoperative day 14. Hospital Course The patient was admitted as noted above. The above noted operative procedure was carried out that day. Preoperatively prophylactic antibiotics were administered Ancef according to protocol. These were continued postoperatively. The patient also received tranexamic acid to help with hemostasis according to protocol. In the postanesthesia care unit a continuous passive motion device was initiated. Also initiated were mechanical methods of DVT prophylaxis in the form of ANTONIA stockings and sequentials. Physical therapy was initiated on the day of surgery. In the postanesthesia care unit, the hospitalist/physician advertising sales assistant ordered a venous Doppler study for presumptive DVT, however this was negative. The pain in her leg was later discharged to be radicular in nature. It abated. On postoperative day #1 physical therapy continued. The use of the continuous passive motion device continued. DVT prophylaxis with resumption of her Xarelto was initiated at this time. The patient continued physical therapy throughout the hospitalization. The distance walked and range of motion improved throughout the hospitalization. The patient was discharged on postoperative day 3 with the disposition being to a snf home for rehabilitation. An appointment for follow-up was made prior to admission. Pt Condition on Discharge: Good Discharge Disposition: Discharge to SNF Discharge Instructions Diet Instructions: As Tolerated, No Restrictions Activities You Can Perform: Full Weight Bearing, Shower Only-No Bath Activities to Avoid: Lifting/Bending, Strenuous Activity, Bathing, Driving Follow up Referrals: Orthopedics with Jonathan Lin MD (Charles) New Medications: Hydrocodone/Acetaminophen (Hydrocodone-Acetamin 7.5-325) 7.5 Mg-325 Mg Tablet 1 TAB PO Q4H PRN for PAIN SCALE 1 TO 10, #30 TAB Continued Medications: Atorvastatin (Atorvastatin) 20 Mg Tab 20 MG PO HS for Cholesterol Management, #30 TAB 0 Refills Cetirizine (Cetirizine) 10 Mg Tab 10 MG PO DAILY for Allergies, TAB 0 Refills Cholecalciferol (Vitamin D-3) 2,000 Unit Tab 1 CAP PO BID Coenzyme Q10 (Ubidecarenone) (Coq-10) 50 Mg Cap 100 MG PO BID Desvenlafaxine ER 24 HR (Pristiq 24 HR) 50 Mg Tab 50 MG PO DAILY, TAB Metoprolol Succinate ER 24 HR (Metoprolol Succinate ER 24 HR) 50 Mg Tab 50 MG PO DAILY, #30 TAB 0 Refills Ranitidine (Zantac) 150 Mg Tab 150 MG PO BID for Reduce Stomach Acid, #60 TAB 0 Refills Ranitidine (Zantac) 150 Mg Tab 150 MG PO DAILY for Reduce Stomach Acid, TAB 0 Refills Rivaroxaban (Xarelto) 20 Mg Tab 20 MG PO DAILY for Blood Clot Prevention, TAB 0 Refills Valsartan (Valsartan) 160 Mg Tab 160 MG PO BID, #60 TAB 0 Refills Jonathan Lin MD (Charles) Dec 19, 2017 08:10
[2017-12-19] MEDS: METOPROLOL SUCCINATE 50 MG EXTENDED RELEASE TAB PO SCH (08:49)
[2017-12-19] MEDS: VALSARTAN 160 MG TAB PO SCH (08:49)
[2017-12-19] MEDS: DOCUSATE SODIUM 100 MG CAP PO SCH (08:49)
[2017-12-19] MEDS: FAMOTIDINE 20 MG TAB PO SCH (08:50)
[2017-12-19] MEDS: CHOLECALCIFEROL (VIT D3) 1000 UNIT TAB PO SCH (08:50)
[2017-12-19] MEDS: CETIRIZINE HCL 10 MG TAB PO SCH (08:50)
== END 2017-12-19 11:36 | DRG 470 ==
LOC: HSDI 07:30 → N06B 18:15
PROVIDERS: ADMIT Orthopaedic Surgery; ATTEND Orthopaedic Surgery
PROC: 3E0T3BZ Introduction of Anesthetic Agent into Peripheral Nerves and Plexi, Percutaneous Approach (ICD-10-PCS; 2017-12-16)
PROC: 0SRD0JA Replacement of Left Knee Joint with Synthetic Substitute, Uncemented, Open Approach (ICD-10-PCS; principal; 2017-12-16 10:08)
DX: M17.12 Unilateral primary osteoarthritis, left knee (principal); I48.91 Unspecified atrial fibrillation; I10 Essential (primary) hypertension; M21.162 Varus deformity, not elsewhere classified, left knee; M65.862 Other synovitis and tenosynovitis, left lower leg; E66.9 Obesity, unspecified; Z68.34 Body mass index [BMI] 34.0-34.9, adult; K21.9 Gastro-esophageal reflux disease without esophagitis; E78.5 Hyperlipidemia, unspecified; M54.9 Dorsalgia, unspecified; G89.29 Other chronic pain; F32.9 Major depressive disorder, single episode, unspecified
CPT/HCPCS: 73560; 82948; 85014; 85018; 85610; 86850; 86900; 86901; 88305; 93971; 94150; C1776; C9290; J0131; J0690; J1100; J1580; J1885; J2060; J2250; J2270; J2370; J2405; J2795; J3010; J7120